=== PATIENT | female | born 1975 | race Caucasian/White ===

== ENCOUNTER → 2019-10-05 15:59 | Outpatient (REF) | payer OTHER, SELFPAY | LOC: ANHLAB 15:59 | PROVIDERS: PCP Internal Medicine; Visit Provider Nurse Practitioner | DX: D49.2 Neoplasm of unspecified behavior of bone, soft tissue, and skin (principal) | CPT/HCPCS: 88305; 88342 ==

== ENCOUNTER → 2019-11-05 14:44 | Outpatient (REF) | payer OTHER, SELFPAY | LOC: ANHLAB 14:44 | PROVIDERS: PCP Internal Medicine; Visit Provider Nurse Practitioner | DX: D49.2 Neoplasm of unspecified behavior of bone, soft tissue, and skin (principal) | CPT/HCPCS: 88305 ==

== ENCOUNTER 2020-03-19 08:56 | Outpatient (CLI) | payer OTHER, SELFPAY ==
--- NOTE | ~2020-03-19 | MM_ITS ---
EXAMINATION: MM screening timur BI w zaida HISTORY: Screening mammogram TECHNIQUE: Craniocaudal and mediolateral oblique 3-D tomosynthesis images were obtained and synthetic 2-D images were generated. CAD analysis was submitted and interpreted. COMPARISON: 03/09/2019 bilateral digital screening mammogram 11/05/2017 diagnostic bilateral digital mammogram and Limited left breast ultrasound 03/28/2016 bilateral digital screening mammogram BREAST PARENCHYMAL COMPOSITION: There are scattered areas of fibroglandular density. FINDINGS: There is no evidence of suspicious mass, calcification, or architectural distortion to sugg est malignancy in either breast. There has been no suspicious interval change. IMPRESSION: 1. No mammographic evidence of malignancy. 2. Recommend routine screening mammography in one year. BI-RADS Category 1: Negative Reviewed, dictated and finalized at location A. 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
== END 2020-03-19 08:57 | disposition home or self-care (01) ==
LOC: ANHIMG 08:58
PROVIDERS: Visit Provider Nurse Practitioner
DX: Z12.31 Encounter for screening mammogram for malignant neoplasm of breast (principal)
CPT/HCPCS: 77063; 77067

== ENCOUNTER → 2020-03-19 09:22 | Outpatient (CLI) | payer OTHER, SELFPAY ==
--- NOTE | ~2020-03-19 | US_ITS ---
EXAMINATION: US transvaginal EXAM DATE: 03/19/2020 09:47 INDICATION: Postcoital and contact bleeding. TECHNIQUE: Pelvic transvaginal sonogram was performed. There are multiple grayscale and Doppler imag es available for interpretation. Comparison is made to prior examination from 03/28/1960. FINDINGS: Uterus measures 9.5 x 4.8 x 4.9 cm, and is morphologically normal. Endometrial stripe key sures 7 mm, within normal limits. There are nabothian cysts. There is no free pelvic fluid. Right adnexa: The ovary measures 3.4 x 2.2 x 2.9 cm and is morphologically normal. Ovarian vascular f low confirmed. Left adnexa: The ovary is not identified. There is no adnexal mass. IMPRESSION: 1. Unremarkable pelvic ultrasound exam. Reviewed, dictated and finalized at location A. 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
== END ==
PROVIDERS: PCP Internal Medicine; Visit Provider Obstetrics & Gynecology Gynecology
DX: N39.0 Urinary tract infection, site not specified (principal)
CPT/HCPCS: 76830

== ENCOUNTER → 2020-06-14 00:25 | Outpatient (CLI) | payer OTHER, SELFPAY ==
[2020-06-14 18:32] LABS: SARS-CoV-2 RNA PCR Negative
== END ==
PROVIDERS: PCP Internal Medicine; Visit Provider Internal Medicine Gastroenterology
DX: Z01.812 Encounter for preprocedural laboratory examination (principal); Z20.822 Contact with and (suspected) exposure to COVID-19
CPT/HCPCS: C9803; U0003; U0005

== ENCOUNTER 2020-06-17 00:34 | Day surgery (SDC) | payer OTHER, SELFPAY ==
[2020-06-02 10:10] VITALS: BMI 37.4
[2020-06-17 09:31] VITALS: BP 152/99; PULSE 98; RESP 20; TEMP 36.7; O2SAT 100; BMI 38.2
[2020-06-17] MEDS: LACTATED RINGERS 1,000 ML 150 ML IV CONT (09:39)
--- NOTE | 2020-06-17 09:48 | WPDANESEPPF ---
Anes - Initial Pre Proc Eval Procedure: Operation Date: 06/17/20 10:30 Proposed Procedures p Esophagogastroduodenoscopy - Delgado Moeller MD Date/Time: 06/17/20 09:48 Surgeon: Delgado Moeller MD Pre Op Diagnosis: Dysphagia Patient Data Age: 44 Gender: F Height: 5 ft 5 in Weight: 104.4 kg Last Vital Signs Temp 36.7 C 06/17/20 09:31 Pulse 98 06/17/20 09:31 Resp 20 06/17/20 09:31 BP 152/99 H 06/17/20 09:31 Pulse Ox 100 06/17/20 09:31 Allergies Allergy/AdvReac Type Severity Reaction Status Date / Time ciprofloxacin Allergy Severe Hives Verified 06/17/20 09:30 mushroom Allergy Severe RASH AND Verified 06/17/20 09:30 SWELLING Penicillins Allergy Intermediate n/v Verified 06/17/20 09:30 amoxicillin Allergy Unknown Nausea and Verified 06/17/20 09:30 Vomiting levofloxacin Allergy Unknown Other Verified 06/17/20 09:30 Sulfa (Sulfonamide Allergy Unknown Hives Verified 06/17/20 09:30 Antibiotics) Home Medications Medication Instructions Recorded Confirmed Type fremanezumab-vfrm 225 mg/1.5 mL 225 mg SUB-Q MONTHLY 11/13/19 06/02/20 History subcutaneous syringe hydroxychloroquine 200 mg tablet 200 mg PO BID 11/13/19 06/02/20 History rimegepant 75 mg disintegrating 75 mg PO ONCE PRN 11/13/19 06/02/20 History tablet lorazepam 0.5 mg tablet 0.5 mg PO BID PRN #30 tablet 03/03/20 06/02/20 Rx albuterol sulfate 90 mcg/actuation 2 inh INHALATION Q4-6H #18 g 03/08/20 06/02/20 Rx aerosol inhaler fluticasone propionate 50 2 spray INTRANASAL DAILY PRN #15.8 03/30/20 06/02/20 Rx mcg/actuation nasal ml spray,suspension cetirizine 10 mg tablet 10 mg PO DAILY #90 tablet 05/26/20 06/02/20 Rx montelukast 10 mg tablet 10 mg PO DAILY #30 tablet 05/29/20 06/02/20 Rx apple cider vinegar 300 mg PO DAILY 06/02/20 06/02/20 History xwpkbnuqjiaw-gwu-knwu-FA-vit K 1 tablet PO DAILY 06/02/20 06/02/20 History [Adults Multivitamin] Patient hx anesthesia problems: post op nausea/vomiting Family hx anesthesia problems: none PMFSH Past Medical History Medical History (Updated 06/17/20 @ 09:49 by Johnny Campbell MD) Colon cancer screening Esophageal ring Essential (primary) hypertension Pure hypercholesterolemia Rheumatoid arthritis Uncomplicated asthma Surgical History Surgical History History of bilateral breast reduction surgery History of foot surgery History of hernia repair History of lumpectomy History of sinus surgery Family History Family History Mother Patient's mother is in good health Family history of osteoporosis Depression Family history of migraine headaches Family history of osteoarthritis Family history of allergic disorder Grandparent Family history of malignant neoplasm of breast Family history of obesity Hypertension Family history of Alzheimer's disease Diabetes mellitus Family history of dementia Father Patient's father is Family history of alcoholism Sibling Patient's sister is in good health Other Asthma Family history of cardiovascular disease Social History Social History Smoking status: Never smoker Second hand tobacco smoke exposure: Yes Alcohol intake: never Substance use type: does not use Living arrangements: with family Spiritual care concerns: No Anes - Eval Final PreProcedure Day of Procedure 06/17/20 09:48 Patient weight: obese Heart: regular rate and rhythm Lungs: clear to auscultation Airway: Mallampati scale class II Neurological: alert and oriented Last oral intake: >/= 8 hours ASA classification: III Emergent: no Anesthetic plan: proceed Anesthesia type and monitoring: general GIVS and standard monitoring Informed Consent: The patient's anesthetic plan and its attendant
--- NOTE | 2020-06-17 10:20 | PM.HPGS ---
History of Present Illness History of Present Illness Consent: Risks, benefits, and alternatives have been discussed and questions answered. Patient agrees to proceed with procedure. Chief complaint: Dysphagia Narrative: Bhakti Zamudio is a 44 year old female with dysphagia to solids, dilated in the past. Review of Systems Constitutional: Constitutional: Denies headache(s) and Denies weakness Eyes: Eyes: Denies blurry vision ENT: Reports Normal hearing present, Denies headache(s) and Denies neck pain Cardiovascular: Cardiovascular: Denies chest pain and Denies dyspnea Respiratory: Respiratory: Denies dyspnea Gastrointestinal: Gastrointestinal: Reports no additional gastrointestinal complaints Genitourinary: Genitourinary: Denies dysuria Musculoskeletal: Musculoskeletal: Denies neck pain Integumentary/Breasts: Skin/Breast: Denies dry skin Neurologic: Reports Normal hearing present, Denies headache(s) and Denies weakness Psychiatric: Psychiatric: Denies anxiety Endocrine: Endocrine: Denies change in body appearance Hematologic/Lymphatic: Hematologic/Lymphatic: Denies easy bleeding Allergic/Immunologic: Allergic/Immunologic: Denies urticaria PMFSH Past Medical History Medical History (Updated 06/17/20 @ 09:49 by Johnny Campbell MD) Colon cancer screening Esophageal ring Essential (primary) hypertension Pure hypercholesterolemia Rheumatoid arthritis Uncomplicated asthma Surgical History Surgical History History of bilateral breast reduction surgery History of foot surgery History of hernia repair History of lumpectomy History of sinus surgery Family History Family History Mother Patient's mother is in good health Family history of osteoporosis Depression Family history of migraine headaches Family history of osteoarthritis Family history of allergic disorder Grandparent Family history of malignant neoplasm of breast Family history of obesity Hypertension Family history of Alzheimer's disease Diabetes mellitus Family history of dementia Father Patient's father is Family history of alcoholism Sibling Patient's sister is in good health Other Asthma Family history of cardiovascular disease Social History Social History Smoking status: Never smoker Second hand tobacco smoke exposure: Yes Alcohol intake: never Substance use type: does not use Living arrangements: with family Spiritual care concerns: No Meds Home Medications and Allergies Home Medications Medication Instructions Recorded Confirmed Type fremanezumab-vfrm 225 mg/1.5 mL 225 mg SUB-Q MONTHLY 11/13/19 06/02/20 History subcutaneous syringe hydroxychloroquine 200 mg tablet 200 mg PO BID 11/13/19 06/02/20 History rimegepant 75 mg disintegrating 75 mg PO ONCE PRN 11/13/19 06/02/20 History tablet lorazepam 0.5 mg tablet 0.5 mg PO BID PRN #30 tablet 03/03/20 06/02/20 Rx albuterol sulfate 90 mcg/actuation 2 inh INHALATION Q4-6H #18 g 03/08/20 06/02/20 Rx aerosol inhaler fluticasone propionate 50 2 spray INTRANASAL DAILY PRN #15.8 03/30/20 06/02/20 Rx mcg/actuation nasal ml spray,suspension cetirizine 10 mg tablet 10 mg PO DAILY #90 tablet 05/26/20 06/02/20 Rx montelukast 10 mg tablet 10 mg PO DAILY #30 tablet 05/29/20 06/02/20 Rx apple cider vinegar 300 mg PO DAILY 06/02/20 06/02/20 History riefzijuhtdo-svk-jgoi-FA-vit K 1 tablet PO DAILY 06/02/20 06/02/20 History [Adults Multivitamin] Allergies Allergy/AdvReac Type Severity Reaction Status Date / Time ciprofloxacin Allergy Severe Hives Verified 06/17/20 09:30 mushroom Allergy Severe RASH AND Verified 06/17/20 09:30 SWELLING Penicillins Allergy Intermediate n/v Verified 06/17/20 09:30 amoxicillin Allergy Unknown Nausea
[2020-06-17 10:42] VITALS: BP 120/86; PULSE 92; RESP 23; O2SAT 97
[2020-06-17 10:52] VITALS: BP 129/91; PULSE 87; RESP 24; O2SAT 97
[2020-06-17 11:02] VITALS: BP 135/97; PULSE 77; RESP 23; O2SAT 98
== END 2020-06-17 11:13 | disposition home or self-care (01) ==
PROVIDERS: PCP Internal Medicine; Visit Provider Internal Medicine Gastroenterology
PROC: 0DJ08ZZ Inspection of Upper Intestinal Tract, Via Natural or Artificial Opening Endoscopic (ICD-10-PCS; CPT 43235; principal; 2020-06-17 10:30)
DX: K22.2 Esophageal obstruction (principal); K44.9 Diaphragmatic hernia without obstruction or gangrene; I10 Essential (primary) hypertension; E78.00 Pure hypercholesterolemia, unspecified; M06.9 Rheumatoid arthritis, unspecified; J45.909 Unspecified asthma, uncomplicated; Z79.51 Long term (current) use of inhaled steroids; E66.9 Obesity, unspecified; Z68.38 Body mass index [BMI] 38.0-38.9, adult
CPT/HCPCS: 43249; A9270; C1726; C9803; J2704; J7120; U0003; U0005

== ENCOUNTER → 2020-07-08 00:45 | Outpatient (CLI) | payer OTHER, SELFPAY ==
[2020-07-08 19:49] LABS: SARS-CoV-2 RNA PCR Negative
== END ==
PROVIDERS: PCP Internal Medicine; Visit Provider Obstetrics & Gynecology Gynecology
DX: Z01.812 Encounter for preprocedural laboratory examination (principal); Z20.822 Contact with and (suspected) exposure to COVID-19
CPT/HCPCS: C9803; U0003; U0005

== ENCOUNTER 2020-07-11 13:53 | Inpatient (IN) | payer OTHER, SELFPAY ==
[2020-06-28 10:19] VITALS: BMI 38.5
[2020-07-11] VITALS (15 sets, daily range): BP systolic 97–131; BP diastolic 62–90; PULSE 84–99; RESP 12–20; TEMP 36.4–36.7; O2SAT 94–100
[2020-07-11] MEDS: ACETAMINOPHEN 500 MG TABLET 1000 MG PO (06:27)
[2020-07-11] MEDS: LACTATED RINGERS 1,000 ML 30 ML IV CONT ×2 (07:08→11:44)
[2020-07-11] MEDS: SCOPOLAMINE 1.5 MG PATCH TRANSDERM (07:09)
[2020-07-11] MEDS: KETOROLAC 15 MG/ML VIAL (*BKC) IV PUSH (07:11)
--- NOTE | 2020-07-11 07:27 | WPDHPUPDATE1 ---
History and Physical Update Update Date/Time: 07/11/20 07:27 History and Physical has been reviewed, including an updated exam of the patient. There are NO changes in the patient's condition. Risks, benefits, and alternatives have been discussed and questions answered. Patient agrees to proceed with procedure.
--- NOTE | 2020-07-11 07:27 | PM.IMHP ---
H&P: HPI History of Present Illness Date/Time: 07/11/20 07:27 The patient is a 44-year-old 2 para 2 admitted for pelvic organ prolapse. The patient has been having increased symptoms of genuine stress incontinence as well as pelvic pressure. She the patient on exam has a secondary cystocele second-degree rectocele and uterine prolapse. The options a pessary, observation, and surgery were discussed in detail. The patient has elected to proceed with surgical repair. After several discussions, the patient has elected to have her ovaries and tubes removed even if I cannot have them removed vaginally. The risks of surgery including infection, bleeding, injury to internal organs (bowel, ureters, bladder,), deep vein thrombosis, and general anesthesia are discussed in detail. [facility] failure of the A&P repair discussed. The risks of removing the ovaries and the need for hormone replacement therapy were discussed in detail. The patient was initially planning to leave her ovaries intact however called back and changed her mind. On the day of surgery it is discussed in detail and she confirms she wants her ovaries removed regardless of route. Given her prior mesh in her umbilicus the plan would be for an exploratory laparotomy to remove ovaries if I cannot removed vaginally. Patient is aware this would add to the risk and recovery pain. In addition, TOT risks of mesh complications, urinary retention, and failure were reviewed. Patient's questions are answered and patient voices understanding and agrees to proceed. Chief Complaint: GSI and Pelvic organ prolapse Review of Systems Constitutional: Constitutional: Reports no additional constitutional complaints Cardiovascular: Cardiovascular: Reports no additional cardiovascular complaints Respiratory: Respiratory: Reports no additional respiratory complaints Gastrointestinal: Gastrointestinal: Reports no additional gastrointestinal complaints Genitourinary: Genitourinary: Reports urinary incontinence (with laugh, cough, movement,exercise) [facility] Past Medical History Medical History (Updated 07/11/20 @ 07:35 by Marla Young MD) Colon cancer screening Depression Esophageal ring Essential (primary) hypertension Pure hypercholesterolemia Rheumatoid arthritis Uncomplicated asthma Surgical History Surgical History (Updated 07/11/20 @ 07:34 by Marla Young MD) History of bilateral breast reduction surgery History of foot surgery History of hernia repair umbilical with bowel incarceration; mesh History of lumpectomy History of sinus surgery S/P laparoscopic cholecystectomy Family History Family History Mother Patient's mother is in good health Family history of osteoporosis Depression Family history of migraine headaches Family history of osteoarthritis Family history of allergic disorder Grandparent Family history of malignant neoplasm of breast Family history of obesity Hypertension Family history of Alzheimer's disease Diabetes mellitus Family history of dementia Father Patient's father is Family history of alcoholism Sibling Patient's sister is in good health Other Asthma Family history of cardiovascular disease Social History Social History Smoking status: Never smoker Second hand tobacco smoke exposure: Yes Alcohol intake: never Substance use: never Substance use type: does not use Living arrangements: with family Spiritual care concerns: No Meds Home Medications and Allergies Home Medications Medication Instructions Recorded Confirmed Type fremanezumab-vfrm 225 mg/1.5 mL 225 mg SUB-Q MONTHLY 11/13/19 07/11/20 History subcutaneous syringe hydroxychloroquine 200 mg tablet 200 mg PO BID 11/13/19 07/11/20 History rimegepant 75 mg disintegrating 75 mg PO ONCE PRN 0
--- NOTE | 2020-07-11 07:30 | WPDANESEPP ---
Anes - Eval Pre Procedure Procedure: Operation Date: 07/11/20 07:30 Proposed Procedures p Total Vaginal Hysterectomy, Bilateral Salpingo-Oophorectomy, Anterior and Posterior Repair - Marla Young MD s Trans Obturator Taping, Cystoscopy - Quang Armendariz MD Date/Time: 07/11/20 07:30 Pre Op Diagnosis: prolapse, stress incontinence Patient Data Age: 45 Gender: F Height: 1.65 m Weight: 105.3 kg Last Vital Signs Temp 36.6 C 07/11/20 06:02 Pulse 95 07/11/20 06:02 Resp 16 07/11/20 06:02 BP 126/86 07/11/20 06:02 Pulse Ox 100 07/11/20 06:02 Allergies Allergy/AdvReac Type Severity Reaction Status Date / Time ciprofloxacin Allergy Severe Hives Verified 06/28/20 10:40 mushroom Allergy Severe RASH AND Verified 06/28/20 10:40 SWELLING Sulfa (Sulfonamide Allergy Intermediate Hives Verified 07/11/20 06:04 Antibiotics) amoxicillin Allergy Mild Nausea and Verified 07/11/20 06:04 Vomiting levofloxacin Allergy Mild Blister Verified 07/11/20 06:04 Penicillins Allergy Mild n/v Verified 07/11/20 06:04 Home Medications Medication Instructions Recorded Confirmed Type fremanezumab-vfrm 225 mg/1.5 mL 225 mg SUB-Q MONTHLY 11/13/19 07/11/20 History subcutaneous syringe hydroxychloroquine 200 mg tablet 200 mg PO BID 11/13/19 07/11/20 History rimegepant 75 mg disintegrating 75 mg PO ONCE PRN 11/13/19 07/11/20 History tablet lorazepam 0.5 mg tablet 0.5 mg PO BID PRN #30 tablet 03/03/20 07/11/20 Rx fluticasone propionate 50 2 spray INTRANASAL DAILY PRN #15.8 03/30/20 07/11/20 Rx mcg/actuation nasal ml spray,suspension cetirizine 10 mg tablet 10 mg PO DAILY #90 tablet 05/26/20 07/11/20 Rx montelukast 10 mg tablet 10 mg PO DAILY #30 tablet 05/29/20 07/11/20 Rx apple cider vinegar 300 mg PO DAILY 06/02/20 07/11/20 History ivlnimwfhjkg-qgg-llxd-FA-vit K 1 tablet PO DAILY 06/02/20 07/11/20 History [Adults Multivitamin] albuterol sulfate [ProAir HFA] 2 inh INHALATION Q4-6H PRN 06/28/20 07/11/20 History Patient hx anesthesia problems: none Family hx anesthesia problems: none PMFSH Past Medical History Medical History (Updated 06/17/20 @ 09:49 by Johnny Campbell MD) Colon cancer screening Esophageal ring Essential (primary) hypertension Pure hypercholesterolemia Rheumatoid arthritis Uncomplicated asthma Surgical History Surgical History History of bilateral breast reduction surgery History of foot surgery History of hernia repair History of lumpectomy History of sinus surgery Family History Family History Mother Patient's mother is in good health Family history of osteoporosis Depression Family history of migraine headaches Family history of osteoarthritis Family history of allergic disorder Grandparent Family history of malignant neoplasm of breast Family history of obesity Hypertension Family history of Alzheimer's disease Diabetes mellitus Family history of dementia Father Patient's father is Family history of alcoholism Sibling Patient's sister is in good health Other Asthma Family history of cardiovascular disease Social History Social History Smoking status: Never smoker Second hand tobacco smoke exposure: Yes Alcohol intake: never Substance use: never Substance use type: does not use Living arrangements: with family Spiritual care concerns: No Exam Day of Procedure 07/11/20 07:30
[2020-07-11] MEDS: ceFAZolin 2 GM/D5W 50 ML 2 GM/50 ML BAG IVPB (07:44)
[2020-07-11] MEDS: LIDO 1%/EPINEPHRINE 1:100,000 50 ML VIAL 10 ML INFILTRATE (07:44)
[2020-07-11] MEDS: GENTAMICIN SULFATE INJ 380 MG in DEXTROSE 5% 100 ML 109.5 MG IVPB (07:55)
--- NOTE | 2020-07-11 10:26 | SUR.OPER ---
open laparotomy by dr. webb started at 2343
--- NOTE | 2020-07-11 11:35 | SUR.OPER ---
urine:450cc, EBL:500cc
[2020-07-11] MEDS: fentaNYL CITRATE INJ (*CRX) 100 MCG/2 ML VIAL 25 MCG IV PUSH ×8 (11:56→12:28)
--- NOTE | 2020-07-11 12:01 | PM.PROC ---
Procedure Note - Detailed Date of procedure: 07/11/20 Pre-op diagnosis: prolapse, stress incontinence requests BSO Post-op diagnosis: same Procedure performed: TVH, A&P repair, open BSO per Dr. Marla Young TOT with cystoscopy per Dr. Quang Armendariz Description of procedure: The patient was taken to the operating room and placed in the dorsal lithotomy position under anesthesia. She was prepped and draped in the usual sterile fashion. Short weighted speculum was placed posteriorly and Claudia retractors placed anteriorly in the vagina. Cervix is grasped on the anterior lip with a tenaculum and the vaginal mucosa surrounding the cervix is injected with 1% lidocaine with epinephrine in a circumferential manner. The scalpel then used to incise the vaginal mucosa around the cervix in a circumferential manner. The vaginal mucosa was dissected off anteriorly and the peritoneum entered. The Claudia retractor is replaced intraperitoneally. The posterior vaginal mucosa was dissected off the cervix and the peritoneum entered with Kessler scissors. The long curved weighted speculum was placed intraperitoneally. The uterosacral and cardinal ligaments are serially clamped, transected, and suture ligated with 0 Vicryl. These were tagged for future use. The uterine vessels are clamped, transected, and suture ligated with 0 Vicryl. The utero-ovarian ligaments are clamped transected and suture ligated with 0 Vicryl and tagged for future use. The specimen is removed the tags are used to pull the tubes into the surgical field the left tube is visible the left ovary is barely visible but unable to reach around it. The right tube and ovary are not visible vaginally. Upon attempting to visualize the right tube and ovary the utero-ovarian pedicle suture pulled through. This was regrasped with a Z clamp and suture ligated with 0 Vicryl. The pelvis appears hemostatic given the patient's prior insistence on wanting her ovaries out the decision was made to proceed with an open mini laparotomy to remove the tubes and ovaries after all the vaginal procedures were completed. The long weighted speculum is removed and the short weighted speculum replaced. The posterior peritoneum was grasped in the midline with a Peon and the anterior peritoneum was grasped in the midline with a Peon. The peritoneum was closed using 0 Ethibond in a pursestring fashion incorporating the tagged anterior and posterior peritoneum as well as the previously tagged cardinal and uterosacral ligaments. All pedicle tags were cut out and the peritoneum is tied down. The vaginal cuff was then closed using 0 Vicryl in a running locked fashion. The short weighted speculum was removed and the hymenal ring grasped at 5 and 7:00 a.m. the intervening tissue is incised with a scalpel and a triangular portion of skin is removed with a scalpel on the perineum. The midline vaginal mucosa is dissected off the rectocele using sharp and blunt dissection. The edges of the vaginal mucosa are grasped with Allis clamps until the apex was reached. A single Allis clamp was placed at the apex. The vaginal mucosa was dissected off laterally from the rectocele. The rectocele was reduced using horizontal mattress sutures of 0 Ethibond until the rectocele was fully reduced. Excess vaginal mucosa was excised and the vaginal mucosa was closed using 0 Vicryl in a running locked fashion. The perineal body is closed in 2 layers 1 deep layer and a subcuticular layer to close the skin. The attention is turned to the cystocele the Claudia retractors removed and the cystocele was grasped at the base at 5 and 7:00 a.m. with Allis clamps. The intervening tissue was incised with a scalpel. The midline of the vaginal mucosa was dissected off using sharp and blunt dissection from the cystocele. The edges of the vaginal mucosa were grasped with Allis clamps until the apex was reached. A single Allis clamp was placed at the apex. Lateral dissection of the
[2020-07-11] MEDS: ONDANSETRON INJ 4 MG/2 ML VIAL IV PUSH ×2 (12:09→18:55)
--- NOTE | 2020-07-11 12:17 | PM.DS ---
DS: Admitting Diagnosis Admitting Diagnosis Admitting Diagnosis: uterine prolapse, cystocele, rectocele, GSI, requests BSO DS: Discharge Diagnosis Discharge Diagnosis (1) S/P vaginal hysterectomy: Code(s): Z90.710 - Acquired absence of both cervix and uterus Status: Acute (2) GSI (genuine stress incontinence), female: Code(s): N39.3 - Stress incontinence (female) (male) Status: Acute (3) Prolapse of female pelvic organs: Code(s): N81.9 - Female genital prolapse, unspecified Status: Acute DS: Summary Hospital Course Reason for hospitalization: post op care Hospital Course: at the time of dc patient is voiding, ambulating, and tolerating a regular diet Status at Discharge Functional status at discharge: independent ambulation Overall status at discharge: patient is progressing back to baseline Time Spent with Patient Time attestation: Total time spent providing and/or coordinating discharge services: DS: Data Data Completed and Pending Pending studies at discharge: Pending at discharge 07/11/20 08:56 Surgical [PTH] Routine 07/11/20 10:34 Surgical [PTH] Routine Labs on day of discharge: Labs from last 24 hours 07/11/20 06:17 Blood Type A Negative Antibody Screen Negative Discharge Plan Discharge Patient Disposition: Home, Self-Care Stand Alone Forms: General Discharge Instructions Follow-up/Referrals: Marla Young MD [Physician] - 1 Week Discharge Medications: No Action hydroxychloroquine [Plaquenil] 200 mg tablet 200 mg PO BID RF: 0 Ajovy Syringe 225 mg/1.5 mL syringe 225 mg SUB-Q MONTHLY RF: 0 Nurtec ODT 75 mg tablet,disintegrating 75 mg PO ONCE PRN (Reason: Migraine Headache) RF: 0 apple cider vinegar 300 mg Tablet 300 mg PO DAILY RF: 0 Adults Multivitamin 18 mg iron-400 mcg-25 mcg Tablet 1 tablet PO DAILY RF: 0 albuterol sulfate [ProAir HFA] 90 mcg/actuation HFA aerosol inhaler 2 inh inhalation Q4-6H PRN (Reason: Bronchospasm) RF: 0 lorazepam 0.5 mg tablet 0.5 mg PO BID PRN (Reason: anxiety) Qty: 30 RF: 0 fluticasone propionate 50 mcg/actuation spray,suspension 2 spray intranasal DAILY PRN (Reason: nasal congestion) Qty: 15.8 RF: 2 cetirizine [Zyrtec] 10 mg tablet 10 mg PO DAILY Qty: 90 RF: 1 montelukast [Singulair] 10 mg tablet 10 mg PO DAILY Qty: 30 RF: 5
[2020-07-11] MEDS: HYDROmorphone HCL INJ (*CRX) 1 MG/ML SYR IV PUSH ×3 (12:31→13:18)
--- NOTE | 2020-07-11 14:02 | PC.NURSE ---
This patient, Bhakti Zamudio, was received from PACU at 142.. Patient/family oriented to unit policies and routines
[2020-07-11] MEDS: DEXTROSE 5%/LACTATED RINGERS 1,000 ML 125 ML IV CONT ×2 (14:48→22:46)
[2020-07-11] MEDS: FENTANYL 600MCG/NS30MLPCA(*CRX 600 MCG/30 ML PCA.VIAL IV CONT (16:15)
[2020-07-11] MEDS: MORPHINE SULFATE (*CRX) 2 MG/ML INJ IV PUSH ×2 (18:49→22:45)
[2020-07-11] MEDS: ESTRADIOL 7 DAY 0.05 MG PATCH TRANSDERM (20:45)
[2020-07-11] MEDS: SIMETHICONE 80 MG TAB.CHEW PO (23:20)
[2020-07-12] VITALS: BP 137/89; PULSE 86; RESP 18; TEMP 36.5; O2SAT 98
[2020-07-12] MEDS: HYDROcodone/acetaminophen (*CRX) 10-325 MG TABLET 1 TAB PO ×7 (00:53→19:38)
[2020-07-12] MEDS: ONDANSETRON INJ 4 MG/2 ML VIAL IV PUSH (01:11)
[2020-07-12] MEDS: SIMETHICONE 80 MG TAB.CHEW PO ×8 (02:08→23:05)
[2020-07-12] MEDS: MORPHINE SULFATE (*CRX) 2 MG/ML INJ IV PUSH (02:49)
[2020-07-12 04:00] VITALS: BP 138/87; PULSE 90; RESP 18; TEMP 37; O2SAT 95
[2020-07-12 05:25] LABS: Basophils Percent Auto 0.1 % (0.2-1.2); Hematocrit 31.7 % (37.0-47.0); Hemoglobin 10.6 g/dL (12.0-15.0); Immature Granulocyte Absolute 0.05 K/mm3 (0.00-0.031); Immature Granulocyte Percent A 0.4 % (0-0.5); Lymphocytes Absolute Auto 0.68 K/mm3 (0.9-3.2); Mean Corpuscular HGB Conc 33.4 g/dl (32-36); Mean Corpuscular Hemoglobin 28.9 pg (26-34); Mean Corpuscular Volume 86.4 fl (80-100); Mean Platelet Volume 9.6 fl (7.4-10.4); Monocytes Absolute Auto 0.8 K/mm3 (0.1-0.6); Monocytes Percent Auto 6.9 % (2.6-8.5); Neutrophils Absolute Auto 9.8 K/mm3 (1.3-6.7); Neutrophils Percent Auto 86.6 % (45.5-73.1); Platelet Count Result 198 k/mm3 (150-375); Red Blood Count 3.67 M/mm3 (4.2-5.4); Red Cell Distribution Width 13.4 % (11.5-14.5); White Blood Count 11.3 K/mm3 (4.5-10.0)
[2020-07-12] MEDS: LORazepam (*CRX) 0.5 MG TABLET PO ×2 (07:21→16:25)
[2020-07-12] MEDS: DOCUSATE SODIUM 100 MG CAPSULE PO ×2 (07:21→16:25)
[2020-07-12] MEDS: LORATADINE 10 MG TABLET PO (07:22)
--- NOTE | 2020-07-12 07:30 | P.PNAN_ITS ---
Anes - Prog Note Post-Op Date/Time: 07/12/20 07:30 Cardiovascular status: normal Respiratory status: normal Airway patency: baseline Mental status: baseline Post-Op hydration status: normal Vital Signs: Last Vital Signs Temp 37.0 C 07/12/20 04:00 Pulse 90 07/12/20 04:00 Resp 18 07/12/20 04:00 BP 138/87 07/12/20 04:00 Pulse Ox 95 07/12/20 04:00 Pain Score (VAS): 05/11 I/O: Intake & Output 07/11/20 07/11/20 07/12/20 15:59 23:59 07:59 Intake Total 850 1310 400 Output Total 105 255 1468 Balance 450 660 -1500 Laboratory Tests 07/12/20 04:00 07/11/20 07/12/20 06:17 04:00 WBC 11.3 H RBC 3.67 L Hgb 10.6 L Hct 31.7 L MCV 86.4 MCH 28.9 MCHC 33.4 RDW 13.4 Plt Count 198 MPV 9.6 Immature Gran % (Auto) 0.4 Neut % (Auto) 86.6 H Lymph % (Auto) 6.0 L [place] % (Auto) 6.9 Eos % (Auto) 0.0 Baso % (Auto) 0.1 L Lymph # (Auto) 0.68 L [place] # (Auto) 0.8 H Eos # (Auto) 0.0 Baso # (Auto) 0.0 Abs Immat Gran (auto) 0.05 H Absolute Neuts (auto) 9.8 H Absolute Nucleated RBC 0.0 Nucleated RBC % 0.0 Blood Type A Negative Antibody Screen Negative Post-procedural complaints: none Patient Feedback: Patient satisfied with anesthetic care.
--- NOTE | 2020-07-12 07:39 | PM.GYNPNOP ---
NUCLEAR UNIT OPERATOR - A/P Postoperative Procedures: Procedures Operation Date: 07/11/20 07:30 Actual Procedures Side Surgeon p Total Vaginal Hysterectomy, open laparotomy for Bilateral Salpingo-Oophorectomy, Anterior and Posterior Repair Bilateral Marla Young MD s Trans Obturator Taping, Cystoscopy Not Applicable Quang Armendariz MD Postoperative day: 1 Postoperative status: doing well and marginal pain control Postoperative plan: routine post-op care Time Spent With Patient Time: Total time spent is greater than 50% in coordination of care (as documented) at patient's floor/unit and/or counseling patient: Time with patient: less than 15 minutes NUCLEAR UNIT OPERATOR- PN:Subj Post-Op Subjective Date/time seen: 07/12/20 07:39 Subjective: patient reports feeling better and patient reports nausea Exam Narrative: Exam Narrative: inc c/d/i abdomen soft, nd NUCLEAR UNIT OPERATOR - PN: Obj Data Vital Signs Vital Signs: Vital Signs - 24 hr 07/11/20 11:44 07/11/20 11:50 07/11/20 12:00 Temperature 97.6 F Pulse Rate 84 86 89 Respiratory Rate 14 20 12 Blood Pressure 97/62 L 97/62 L 100/71 Pulse Oximetry 100 100 100 07/11/20 12:15 07/11/20 12:30 07/11/20 12:45 Temperature Pulse Rate 90 94 92 Respiratory Rate 20 16 20 Blood Pressure 102/70 111/72 126/90 Pulse Oximetry 98 95 94 07/11/20 13:00 07/11/20 13:15 07/11/20 13:30 Temperature Pulse Rate 95 92 99 Respiratory Rate 20 16 12 Blood Pressure 128/82 131/79 117/70 Pulse Oximetry 98 98 100 07/11/20 13:45 07/11/20 13:53 07/11/20 16:15 Temperature 98.1 F Pulse Rate 95 98 Respiratory Rate 12 18 18 Blood Pressure 121/86 115/77 Pulse Oximetry 99 100 100 07/11/20 17:24 07/11/20 20:00 07/12/20 00:00 Temperature 97.7 F 97.7 F Pulse Rate 98 91 86 Respiratory Rate 18 16 18 Blood Pressure 124/83 137/89 Pulse Oximetry 100 98 98 07/12/20 04:00 Temperature 98.6 F Pulse Rate 90 Respiratory Rate 18 Blood Pressure 138/87 Pulse Oximetry 95 Intake/Output Intake/Output: Intake & Output 07/09/20 07/10/20 07/11/20 07/12/20 23:59 23:59 23:59 23:59 Intake Total 2160 400 Output Total 1050 1900 Balance 1110 -1500 Meds/Results Medications: Active Medications Generic Name Dose Route Start Last Admin Trade Name Freq PRN Reason Stop Dose Admin Hydrocodone Bitart/Acetaminophen 1 tab 07/11/20 13:53 Hydrocodone/Acetaminophen (*Crx) 5-325 Mg Tablet PO Q3H PRN Pain Rated 5 or Less Hydrocodone Bitart/Acetaminophen 1 tab 07/11/20 13:53 07/12/20 07:21 Hydrocodone/Acetaminophen (*Crx) 10-325 Mg Tablet PO 1 tab Q3H PRN Administration Pain Rated 6 or Greater Albuterol 2 puff 07/11/20 13:53 Albuterol Sulfate (*Sp) Aerosol 1 Puff INHALATION Q4-6H PRN Bronchospasm Docusate Sodium 100 mg 07/11/20 17:00 07/12/20 07:21 Docusate Sodium 100 Mg Capsule PO 100 mg BID PEREZ Administration Estradiol 0.05 mg 07/11/20 13:53 07/11/20 20:45 Estradiol 7 Day 0.05 Mg Patch TRANSDERM 0.05 mg Q7D PEREZ Administration Fluticasone Propionate 2 spray 07/11/20 13:53 Fluticasone Propionate 0.05% Na Spr 16 Gm Btl (*Bkc) NASAL DAILY PRN nasal congestion Dextrose/Lactated Ringer's 1,000 mls @ 125 mls/hr 07/11/20 13:53 07/11/20 22:46 Dextrose 5%/Lactated Ringers IV CONT 125 mls/hr .Q8H PEREZ Administration Acetaminophen 1,000 mg in 100 mls @ 400 mls/hr 07/11/20 18:29 07/11/20 19:03 Ofirmev 1,000 Mg Ivpb IVPB 07/12/20 18:30 Infused Q6H PRN Infusion Pain 1-3 or Fever Loratadine 10 mg 07/12/20 09:00 07/12/20 07:22 Loratadine 10 Mg Tablet PO 08/11/20 09:01 10 mg DAILY PEREZ Administration Lorazepam 0.5 mg 07/11/20 13:53 07/12/20 07:21 Lorazepam (*Crx) 0.5 Mg Tablet PO 0.5 mg BID PRN Administration anxiety Morphine Sulfate 2 mg 07/11/20 18:36 07/12/20 02:49 Morphine Sulfate (*Crx) 2 Mg/Ml Inj IV PUSH 2 mg Q4H PRN Administration Breakthrough Pain Ondansetron
[2020-07-12 08:00] VITALS: BP 130/79; PULSE 94; RESP 18; TEMP 36.6; O2SAT 100
[2020-07-12] MEDS: KETOROLAC 30 MG/ML VIAL (*BKC) IV PUSH (09:57)
--- NOTE | 2020-07-12 09:57 | PM.PROC ---
Procedure Note - Detailed Date of procedure: 07/12/20 Pre-op diagnosis: prolapse, stress incontinence Post-op diagnosis: same Procedure performed: TOT with cystoscopy Description of procedure: Patient was taken to the operating room with IV running. She underwent a Vaginal hysterectomy and anterior and posterior repair with dr webb. Patient was in lithotimy position. Allis clamps place 1cm below urethra and 3cm apart. a 2cm incision was made between the allis clamps and the mucosal tissue was dissected off with metzenbaum scizzors and blunt dissection to the pubic bone bilaterally. The obturator aguilar was palpated bilaterallyand injected with 1% lidocaine. stab incisions were made. the obtyrx device/hook was then introduced through the outer obturator aguilar through hte membrane and exitin through the vagina protecting th bladder wall. This was performed bilaterally. the mesh was attacheded. the catheter was removed a cystoscope was performed with a 70 degree scope and the bladder dome was noted. intact bladder and urethra noted and bilateral ureter jets.cystoscope removed and catheter replaced. the bladder sling weas pulled through to propper tension spacing with a metzenbaum scissors. The vagina was then closed mucosa with 2-0 vicryl in a running locked stitch. vagina was paced wih moist spone with premarin cream. the stab incisions closed with dermabond. Anesthesia: GLMA Surgeon: Quang Armendariz MD Estimated blood loss (mL): 75 Urine output (mL): 100 Drains: Yes Packing: Yes Pathology: none sent Complications: None Condition: stable
[2020-07-12] MEDS: IBUPROFEN 600 MG TABLET PO ×2 (16:23→23:04)
[2020-07-12 20:00] VITALS: BP 109/62; PULSE 100; RESP 18; TEMP 36.9; O2SAT 99
[2020-07-12] MEDS: HYDROcodone/acetaminophen (*CRX) 5-325 MG TABLET 1 TAB PO (23:04)
[2020-07-13] MEDS: SIMETHICONE 80 MG TAB.CHEW PO ×3 (02:31→09:06)
[2020-07-13] MEDS: HYDROcodone/acetaminophen (*CRX) 10-325 MG TABLET 1 TAB PO (02:31)
[2020-07-13] MEDS: IBUPROFEN 600 MG TABLET PO ×2 (05:31→12:06)
[2020-07-13] MEDS: HYDROcodone/acetaminophen (*CRX) 5-325 MG TABLET 1 TAB PO ×3 (05:31→12:08)
[2020-07-13 07:35] VITALS: BP 105/66; PULSE 100; RESP 20; TEMP 36.7; O2SAT 95
[2020-07-13] MEDS: DOCUSATE SODIUM 100 MG CAPSULE PO (09:06)
--- NOTE | 2020-07-13 16:26 | PC.NURSE ---
1320 Pt's discharge papers reviewed with her; pt voiced understanding and signed papers.
== END 2020-07-13 13:45 | disposition home or self-care (01) | DRG 743 ==
LOC: ANHOB2 07-12 11:42
PROVIDERS: Admitting Provider Obstetrics & Gynecology Gynecology; PCP Internal Medicine; Visit Provider Obstetrics & Gynecology
PROC: 0UT90ZZ Resection of Uterus, Open Approach (ICD-10-PCS; CPT 58260; principal; 2020-07-11 07:30)
DX: N81.4 Uterovaginal prolapse, unspecified (principal); N39.3 Stress incontinence (female) (male); F32.9 Major depressive disorder, single episode, unspecified; M06.9 Rheumatoid arthritis, unspecified; J45.909 Unspecified asthma, uncomplicated; I10 Essential (primary) hypertension; E78.00 Pure hypercholesterolemia, unspecified; Z90.49 Acquired absence of other specified parts of digestive tract
CPT/HCPCS: 36415; 85025; 86850; 86900; 86901; 88305; 88307; A9270; C1771; C9803; J0131; J0690; J1100; J1170; J1580; J1885; J2250; J2270; J2405; J2704; J2710; J3010; J7030; J7120; J7121; U0003; U0005

== ENCOUNTER 2021-04-12 12:49 | Outpatient (RCR) | payer OTHER, SELFPAY ==
[2021-04-12] MEDS: FAMOTIDINE 20 MG TABLET PO (15:24)
[2021-04-12] MEDS: ACETAMINOPHEN 325 MG TABLET 650 MG PO (15:24)
[2021-04-12] MEDS: diphenhydrAMINE HCl CAP 25 MG CAPSULE PO (15:24)
[2021-04-12 15:25] VITALS: BP 142/94; PULSE 117; TEMP 37.1; O2SAT 98
[2021-04-12 16:43] VITALS: BP 144/84; PULSE 106; O2SAT 98
== END 2021-04-12 17:00 ==
LOC: AMCINF 12:49
PROVIDERS: PCP Internal Medicine; Visit Provider Internal Medicine Hematology & Oncology
DX: U07.1 COVID-19 (principal); I10 Essential (primary) hypertension
CPT/HCPCS: A9270; M0247; Q0247

== ENCOUNTER 2021-05-27 09:12 | Emergency (ER) | payer OTHER, SELFPAY ==
--- NOTE | ~2021-05-27 | XR_ITS ---
EXAMINATION: XR knee RT min 4V EXAM DATE: 05/27/2021 09:58 INDICATION: Fell/Twisted 05/26/21. Mild Swelling/Lat Pain. TECHNIQUE: Three projections of the right knee. There is no prior study for comparison. FINDINGS: No evidence osteochondral defect or joint body in the right knee joint. There are no acut e fractures or dislocations identified. There is no subcutaneous gas. The soft tissue is unremarkab le. There are no radiopaque foreign bodies. IMPRESSION: No acute osseous findings. Reviewed, dictated and finalized at location [facility]. [facility] IMPRESSION: No acute osseous findings.
[2021-05-27 09:18] VITALS: BP 127/93; PULSE 94; RESP 20; TEMP 36.7; O2SAT 99
--- NOTE | 2021-05-27 09:58 | ED.LOWEXIN ---
HPI - Extremity Injury (Lower) General Chief Complaint: Extremity Injury, Lower Stated Complaint: thyroid nodule/right knee pain Time Seen by Provider: 05/27/21 09:30 Source: patient and RN notes reviewed Mode of arrival: ambulatory Limitations: no limitations History of Present Illness HPI Narrative: Patient presents today complaining of right knee injury. She slipped in some dog vomit yesterday morning twisting her knee. She is experiencing some lateral pain radiating to her calf and hamstring. She currently rates her pain 3/10 and has been taking ibuprofen and using topical Voltaren with some relief. Pain increases with movement and weightbearing. Denies numbness or tingling in the leg or foot. MD complaint: knee injury Related Data Home Medications Medication Instructions Recorded Confirmed fremanezumab-vfrm 225 mg/1.5 mL 225 mg SUB-Q MONTHLY 11/13/19 05/27/21 subcutaneous syringe hydroxychloroquine 200 mg tablet 200 mg PO BID 11/13/19 05/27/21 rimegepant 75 mg disintegrating 75 mg PO ONCE PRN 11/13/19 05/27/21 tablet Adults Multivitamin 1 tablet PO DAILY 06/02/20 05/27/21 apple cider vinegar 300 mg PO DAILY 06/02/20 05/27/21 conjugated estrogens 0.3 mg tablet 0.3 mg PO DAILY 11/07/20 05/27/21 semaglutide (weight loss) 0.25 0.25 mg SUBCUT WEEKLY 02/15/21 05/27/21 mg/0.5 mL subcutaneous pen injector Allergies Allergy/AdvReac Type Severity Reaction Status Date / Time ciprofloxacin Allergy Severe Hives Verified 05/27/21 09:34 mushroom Allergy Severe RASH AND Verified 05/27/21 09:34 SWELLING Sulfa (Sulfonamide Allergy Intermediate Hives Verified 05/27/21 09:34 Antibiotics) levofloxacin Allergy Mild Blister Verified 05/27/21 09:34 amoxicillin AdvReac Mild Nausea and Verified 05/27/21 09:34 Vomiting Penicillins AdvReac Mild n/v Verified 05/27/21 09:34 Review of Systems Review of Systems: CONSTITUTIONAL: Denies body aches, fever, chills, or sweats. EYES: Denies visual changes, redness, or discharge. ENT: Denies rhinorrhea, congestion, sore throat, or otalgia. CARDIOVASCULAR: Denies chest pain, palpitations, or edema. RESPIRATORY: Denies cough or dyspnea. GASTROINTESTINAL: Denies abdominal pain, nausea, vomiting, or diarrhea. GENITOURINARY: Denies dysuria or hematuria. SKIN: Denies rash, itching, or wounds. MUSCULOSKELETAL: Denies back pain, or myalgia.+ Right knee injury NEUROLOGIC: Denies headache, numbness, tingling, or weakness. PSYCH: Denies depression or anxiety. [facility] Past Medical History Medical History Colon cancer screening Depression Esophageal dilatation Esophageal ring Essential (primary) hypertension Pure hypercholesterolemia Rheumatoid arthritis Uncomplicated asthma Surgical History Surgical History H/O total hysterectomy with bilateral salpingo-oophorectomy (BSO) History of bilateral breast reduction surgery History of foot surgery History of hernia repair umbilical with bowel incarceration; mesh History of lumpectomy History of sinus surgery S/P laparoscopic cholecystectomy Family History Family History Mother Patient's mother is in good health Family history of osteoporosis Depression Family history of migraine headaches Family history of osteoarthritis Family history of allergic disorder Grandparent Family history of malignant neoplasm of breast Family history of obesity Hypertension Family history of Alzheimer's disease Diabetes mellitus Family history of dementia Father Patient's father is Family history of alcoholism Sibling Patient's sister is in good health Other Asthma Family history of cardiovascular disease Social History Social History Smoking status: Never smoker Se
== END 2021-05-27 10:26 | disposition home or self-care (01) ==
PROVIDERS: Emergency Provider Nurse Practitioner
DX: S86.911A Strain of unspecified muscle(s) and tendon(s) at lower leg level, right leg, initial encounter (principal); W18.40XA Slipping, tripping and stumbling without falling, unspecified, initial encounter; I10 Essential (primary) hypertension; E78.00 Pure hypercholesterolemia, unspecified; M06.9 Rheumatoid arthritis, unspecified; J45.909 Unspecified asthma, uncomplicated
CPT/HCPCS: 73564; 99213; G0463

== ENCOUNTER → 2021-08-09 14:51 | Outpatient (CLI) | payer OTHER, SELFPAY ==
--- NOTE | ~2021-08-09 | CT_ITS ---
EXAMINATION: CT abdomen pelvis w con DATE: 08/09/2021 15:45 INDICATION: Abdominal and pelvic pain. History of hernia repair and complete hysterectomy. TECHNIQUE: Computed tomography (CT) of the abdomen and pelvis was performed with 100 CC Omnipaque 300 intravenous contrast. Automated exposure control and iterative reconstruction technique were employe d. Exam dose: 1082.52 mGy-cm total exam DLP. COMPARISON: 03/19/2020 transvaginal pelvic ultrasound 07/13/2014 CT abdomen pelvis FINDINGS: There is minimal bilateral lower lobe dependent atelectasis. Normal heart size. No pericard ial or pleural effusion. Approximately 11 mm left hepatic medial segment cyst. The liver is otherwise unremarkable. Normal spl enic size. The gallbladder is absent. No bile duct or pancreatic duct dilatation. No pancreatic mass lesion or c alcification. Normal adrenal glands. No renal mass lesion or urinary tract calculus or hydroureteronephrosis. Normal caliber of the abdominal aorta. No intraperitoneal or retroperitoneal or pelvic mass lesion or adenopathy or ascites. The urinary bladder is unremarkable. Status post hysterectomy. Normal appendix. No bowel obstruction, bowel wall thickening, pneumatosis or intraperitoneal free air . Small fat-containing umbilical hernia. Up to 2.4 cm 8 x 4.6 cm wide supraumbilical fat-containing midline ventral abdominal wall hernia. No suspicious osteolytic or osteoblastic lesions. IMPRESSION: 11 mm left hepatic cyst Status post cholecystectomy Status post hysterectomy Small fat-containing umbilical hernia Approximately 2.4 x 4.6 cm supraumbilical ventral abdominal wall fat-containing hernia Reviewed, dictated and finalized at [facility]. Reviewed, dictated and finalized at location B.
[2021-08-09 15:32] LABS: Estimated Glomerular Filt Rate > 60
== END ==
PROVIDERS: PCP Nurse Practitioner; Visit Provider Nurse Practitioner
DX: R10.2 Pelvic and perineal pain (principal); Z90.49 Acquired absence of other specified parts of digestive tract; K76.89 Other specified diseases of liver; K42.9 Umbilical hernia without obstruction or gangrene
CPT/HCPCS: 74177; Q9967

== ENCOUNTER 2022-04-16 13:07 | Outpatient (NON) | payer OTHER, SELFPAY | END 2022-04-16 13:08 | disposition home or self-care (01) | PROVIDERS: PCP Internal Medicine; Visit Provider Nurse Practitioner | DX: L72.11 Pilar cyst (principal) | CPT/HCPCS: 88304; 88305 ==